=== PATIENT | female | born 1990 | race Caucasian/White ===

== ENCOUNTER 2017-09-05 14:02 | Emergency (ER) | payer MEDICAID ==
[~2017-09-05] VITALS: Ht 154.9 cm; Wt 90.9 kg
[2017-09-05 14:13] VITALS: Ht 154.9 cm; Wt 90.9 kg
[2017-09-05 16:05] LABS: UA SPECIFIC GRAVITY 1.025 (1.005-1.035); microscopic required? YES; urine erythrocyte 2+ (NEGATIVE)
[2017-09-05 17:30] VITALS: BP 141/84
== END 2017-09-05 17:30 | disposition home or self-care (01) ==
LOC: ED 14:02
PROVIDERS: Emergency Medicine
DX: N39.0 Urinary tract infection, site not specified (principal)
CPT/HCPCS: J0696

== ENCOUNTER 2018-08-22 15:58 | Emergency (ER) | payer MEDICAID ==
[~2018-08-22] VITALS: Ht 157.5 cm; Wt 89.4 kg
[2018-08-22 16:18] VITALS: BP 137/70; Ht 157.5 cm; Wt 89.4 kg
== END 2018-08-22 18:09 | disposition home or self-care (01) ==
LOC: ED 15:58
DX: R05 Cough (principal); J30.9 Allergic rhinitis, unspecified; F17.210 Nicotine dependence, cigarettes, uncomplicated; Z71.6 Tobacco abuse counseling
CPT/HCPCS: 99406